=== PATIENT | male | born 1980 | race Caucasian/White ===

== ENCOUNTER 2018-12-03 19:45 | Emergency (ER) | payer SELFPAY ==
[2018-12-03 19:49] VITALS: BP 147/92; PULSE 77; TEMP 97.7; BMI 28.2
--- NOTE | 2018-12-03 20:14 | PDOC ---
*Physical Exam - Vital Signs Last Vital Signs Temp Pulse Resp BP Pulse Ox 97.7 F 77 18 147/92 96 12/03/18 19:46 12/03/18 19:46 12/03/18 19:46 12/03/18 19:46 12/03/18 19:46 ED Treatment Course - LABORATORY CBC & Chemistry Diagram: 12/03/18 20:00 12/03/18 20:00 Medical Decision Making - Medical Decision Making 12/03/18 20:14 Mr Watkins is a 38 y/o M no significant pmh who presents with a complaint of abdominal wall tenderness and erythema Pt was working yesterday and thought he was bitten or stung by something He observed over the course of the day and noticed that the redness worsened Denies recent travel/camping/hiking, fever, sob, cp, abd pain, n/v, urinary complaints. Unclear if pt was bitten Likely Cellulitis Bedside US with no abscess No target sign Area of cellulitis measures 17 cm x 6cm Pt seen by Midlevel Provider under my direct supervision Pt interviewed and examined Ancillary studies reviewed CRP not sent but other labs in LRINEC score re assuring Will d/c to home on keflex/bactrim Pt asked to take a probiotic Area of erythema outlined Pt asked to follow the progression of his cellulitis over the next 48 hours Return to the ER for wound check in 48 hours or sooner for spreading erythema or systemic signs of illness I agree with plan as outlined by Midlevel Provider 12/03/18 21:39 Clinical impression: cellulitis without abscess, initial impression 12/03/18 21:50 12/03/18 21:51 *DC/Admit/Observation/Transfer Diagnosis at time of Disposition: Cellulitis of right abdominal wall - Discharge Dispostion Disposition: HOME Condition at time of disposition: Stable - Prescriptions Prescriptions: Cephalexin [Keflex] 500 mg PO QID #27 capsule Sulfamethoxazole/Trimethoprim [Bactrim Ds -] 1 tab PO BID #13 tablet - Referrals Referrals: Waylon Talbert MD [Staff Physician] - 2 Days - Patient Instructions Printed Discharge Instructions: DI for Cellulitis -- Adult Additional Instructions: Thank you for choosing [facility]. It was a pleasure taking care of you. You may take Motrin 600 mg every 6 hours by mouth as needed for mild to moderate pain. Take Motrin with food. Take the antibiotics as prescribed If the area of redness spreads beyond the marked black line, return to the ED You can take pictures of the area everyday as well to keep an eye on it Return in 2 days for wound check Your liver enzymes were elevated Advise limiting alcohol intake and intake of fatty food Follow-up in primary care clinic for further evaluation regarding this. Return to the Emergency Department if your symptoms worsen or persist, you have fever, area of redness continues to spread, streaking, vomiting or other concerning symptoms. Cecil por elegir el [facility]. Fue un placer cuidar de ti. Puede kian Motrin 600 mg cada 6 horas por va oral segn sea necesario para el dolor leve a moderado. Maribel Motrin con comida. Melia los antibiticos segn lo prescrito. Si el estuardo de enrojecimiento se extiende ms all de la lnea raj marcada, regrese al ED Tambin puede kian fotografas de la shelia todos los jaimes para vigilarla. Regreso en 2 jaimes para control de heridas Cornelius enzimas hepticas fueron elevadas Aconsejar limitar la ingesta de alcohol y la ingesta de alimentos grasos. Seguimiento en la clnica de atencin primaria para hafsa evaluacin adicional al respecto. Regrese al departamento de emergencias si cornelius sntomas empeoran o persisten, tiene fiebre, el estuardo de enrojecimiento contina extendindose, surcando, vomitando u otros sntomas preocupantes. Print Language: MONGOLIAN - Post Discharge Activity
[2018-12-03] MEDS ORDERED: CEPHALEXIN MONOHYDRATE 500 MG CAPSULE (UD) PO ONE (20:24)
[2018-12-03] MEDS ORDERED: SULFAMETHOXAZOLE/TRIMETHOPRIM 800MG/160MG D.S. TABLET PO ONE (20:24)
[2018-12-03] MEDS ORDERED: IBUPROFEN 600 MG TABLET (FP) PO ONE ×2 (20:34→21:07)
[2018-12-03] MEDS ORDERED: SULFAMETHOXAZOLE/TRIMETHOPRIM 800MG/160MG D.S. TABLET ONE (20:35)
[2018-12-03] MEDS ORDERED: CEPHALEXIN MONOHYDRATE 500 MG CAPSULE (UD) ONE (20:37)
[2018-12-03 20:38] LABS: BASO % 0.3 % (0-2.0); EOS % 1.2 % (0-4.5); HEMATOCRIT 41.9 % (35.4-49); HEMOGLOBIN 14.3 GM/dL (11.7-16.9); LYMPH % 20.7 % (8-40); MCH 31.5 pg (25.7-33.7); MCHC 34.1 g/dl (32.0-35.9); MEAN CELL VOLUME 92.6 fl (80-96); MONO % 8.7 % (3.8-10.2); NEUT % 69.1 % (42.8-82.8); PLATELET COUNT 256 K/MM3 (134-434); RBC 4.53 M/mm3 (4.00-5.60); RDW 13.8 % (11.9-15.9); WHITE BLOOD COUNT 10.4 K/mm3 (4.0-10.0)
--- NOTE | 2018-12-03 20:45 | PDOC ---
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) Past History - Past Medical History Allergies/Adverse Reactions: Allergies Allergy/AdvReac Type Severity Reaction Status Date / Time No Known Allergies Allergy Verified 12/03/18 19:49 Home Medications: Ambulatory Orders Cephalexin [Keflex] 500 mg PO QID #27 capsule 12/03/18 Sulfamethoxazole/Trimethoprim [Bactrim Ds -] 1 tab PO BID #13 tablet 12/03/18 COPD: No - Suicide/Smoking/Psychosocial Hx Smoking History: Never smoked *Physical Exam - Vital Signs Last Vital Signs Temp Pulse Resp BP Pulse Ox 97.7 F 77 18 147/92 96 12/03/18 19:46 12/03/18 19:46 12/03/18 19:46 12/03/18 19:46 12/03/18 19:46 - Physical Exam General Appearance: No: Apparent Distress Respiratory/Chest: positive: Lungs Clear, Normal Breath Sounds. negative: Respiratory Distress Cardiovascular: positive: Regular Rhythm, Regular Rate, S1, S2. negative: Murmur Gastrointestinal/Abdominal: positive: Soft, Other (6x5 cm area of induration on RLQ with surrounding erythema, no fluctuance noted, no rash noted). negative: Tender, Tenderness, Hernia, Mass Integumentary: negative: Rash Neurologic: positive: Alert, Normal Mood/Affect ED Treatment Course - LABORATORY CBC & Chemistry Diagram: 12/03/18 20:00 12/03/18 20:00 - ADDITIONAL ORDERS Additional order review: 12/03/18 20:00 RBC 4.53 MCV 92.6 MCHC 34.1 RDW 13.8 MPV 7.0 L Neutrophils % 69.1 Lymphocytes % 20.7 Monocytes % 8.7 Eosinophils % 1.2 Basophils % 0.3 - Medications Given in the ED: ED Medications Discontinued Medications Generic Name Dose Route Start Last Admin Trade Name Freq PRN Reason Stop Dose Admin Cephalexin HCl 500 mg 12/03/18 20:24 12/03/18 20:39 Keflex - PO 12/03/18 20:25 500 mg ONCE ONE Administration Trimethoprim/Sulfamethoxazole 1 each 12/03/18 20:24 12/03/18 20:39 Bactrim Ds - PO 12/03/18 20:25 1 each ONCE ONE Administration Medical Decision Making - Medical Decision Making 38 y/o M with no sig pmh presents with ?something stung him along his RLQ yesterday. Noticed today the site was getting worse in appearance today. 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 Denies recent travel/camping/hiking, fever, sob, cp, abd pain, n/v, urinary complaints. Cellulitis Less likely Lyme's disease, necrotizing fasciitis Bedside US done with no pocket of fluid noted Plan: Labs, Keflex, Bactrim Area of redness was demarcated 12/03/18 20:42 Labs reviewed LFTs elevated, no prior to compare to Patient without PCP Given PCP clinic card; advised to f/u in clinic regarding liver function; advised to limit alcohol intake for now Will have patient return in 2 days for site check 12/03/18 22:11 *DC/Admit/Observation/Transfer Diagnosis at time of Disposition: Cellulitis of right abdominal wall - Discharge Dispostion Disposition: HOME Condition at time of disposition: Stable Decision to Admit order: No - Prescriptions Prescriptions: Cephalexin [Keflex] 500 mg PO QID #27 capsule Sulfamethoxazole/Trimethoprim [Bactrim Ds -] 1 tab PO BID #13 tablet - Referrals Referrals: Waylon Talbert MD [Staff Physician] - 2 Days - Patient Instructions Printed Discharge Instructions: DI for Cellulitis -- Adult Additional Instructions: Thank you for choosing [facility]. It was a pleasure taking care of you. You may take Motrin 600 mg every 6 hours by mouth as needed for mild to moderate pain. Take Motrin with food. Take the antibiotics as prescribed If the area of redness spreads beyond the marked black line, return to the ED You can take pictures of the area everyday as well to keep an eye on it Return in 2 days for wound check Your liver enzymes were elevated Advise limiting alcohol intake and intake of fatty food Follow-up in primary care clinic for further evaluation regarding this. Return to the Emergency Department if your symptoms worsen or persist, you have fever, area of redness continues to spread, streaking, vomiting or other concerning symptoms. Cecil por elegir [facility]. Fue un placer cuidar de ti. Puede kian Motrin 600 mg cada 6 horas por va oral segn sea necesario para el dolor leve a moderado. Maribel Motrin con comida. [place] los antibiticos segn lo prescrito. Si el estuardo de enrojecimiento se extiende ms all de la lnea raj marcada, regrese al ED Tambin puede kian fotografas de la shelia todos los jaimes para vigilarla. Regreso en 2 jaimes para control de heridas Cornelius enzimas hepticas fueron elevadas Aconsejar limitar la ingesta de alcohol y la ingesta de alimentos grasos. Seguimiento en la clnica de atencin primaria para hafsa evaluacin adicional al respecto. Regrese al departamento de emergencias si cornelius sntomas empeoran o persisten, tiene fiebre, el estuardo de enrojecimiento contina extendindose, surcando, vomitando u otros sntomas preocupantes. Print Language: [place] - Post Discharge Activity
[2018-12-03 21:08] LABS: BILIRUBIN,TOTAL 0.6 mg/dL (0.2-1); BLOOD UREA NITROGEN 4.7 mg/dL (7-18); CALCIUM 9.4 mg/dL (8.5-10.1); CREATININE 0.7 mg/dL (0.55-1.3); POTASSIUM 4.3 mmol/L (3.5-5.1); TOT PROT 7.9 g/dl (6.4-8.2)
== END 2018-12-03 22:20 | disposition home or self-care (01) ==
LOC: JER 19:45
DX: L03.311 Cellulitis of abdominal wall (principal)
CPT/HCPCS: 36415; 80053; 85025; 85651; 99281-25